=== PATIENT | female | born 1935 | race Caucasian/White ===

== ENCOUNTER 2016-10-17 22:18 | Emergency (ER) | payer MEDICARE, BC ==
--- NOTE | 2016-10-17 22:50 | Emergency Department Record ---
History of Present Illness - General Chief Complaint: Cough Stated Complaint: COUGH Time Seen by Provider: 10/17/16 22:46 Source: Patient Mode of Arrival: Ambulatory Limitations: No limitations - History of Present Illness Initial Comments: 81 yo female presents to ED for evaluation of a cough for several days. Patient denies fevers, chills, nausea, or vomiting. Patient reports that she has been eating well as well. Patient denies previous heart or lung problems, but does report that several people have had bronchitis around her. MD Complaint: Cough Onset/Timin -: Week(s) Severity: Mild Consistency: Constant Improves With: Nothing Worsens With: Nothing Context: Sick contacts Associated Symptoms: Denies other symptoms Treatments Prior to Arrival: None - Related Data Home Medications Medication Instructions Recorded Confirmed Last Taken Calcium Carbonate/Vitamin D3 1 each PO BID 07/01/14 10/17/16 10/17/16 [Calcium 600 + Vit D Tablet] Donepezil HCl [Aricept] 5 mg PO QHS 07/01/14 10/17/16 10/17/16 Losartan Potassium [Cozaar] 50 mg PO DAILY 07/01/14 10/17/16 10/17/16 Metoprolol Tartrate [Lopressor] 50 mg PO DAILY 07/01/14 10/17/16 10/17/16 Simvastatin [Zocor] 20 mg PO QHS 07/01/14 10/17/16 10/17/16 Meloxicam [Meloxicam] 7.5 mg PO DAILY 05/20/16 10/17/16 10/17/16 Previous Rx's Medication Instructions Recorded Omeprazole [Prilosec] 20 mg PO BID #60 capsule. 02/12/15 Azithromycin [Zithromax] 250 mg PO DAILY #4 tab 10/17/16 Prednisone [Prednisone 20Mg] 20 mg PO BID #10 tab 10/17/16 Allergies Allergy/AdvReac Type Severity Reaction Status Date / Time No Known Drug Allergies Allergy Verified 02/11/15 17:12 Travel Screening - Travel/Exposure Within Last 30 Days Have you traveled within the last 30 days?: No - Travel/Exposure Within Last Year Have you traveled outside the [place] in the last year?: No - Additonal Travel Details Have you been exposed to anyone with a communicable illness?: No - Travel Symptoms Symptom Screening: None Review of Systems Constitutional: Denies: Chills, Fever, Malaise, Night sweats Eyes: Denies: Eye discharge, Eye pain ENT: Reports: Congestion. Denies: Ear pain, Epistaxis Respiratory: Reports: Cough. Denies: Dyspnea Cardiovascular: Denies: Chest pain, Dyspnea on exertion Endocrine: Denies: Fatigue, Heat or cold intolerance Gastrointestinal: Denies: Abdominal pain, Nausea, Vomiting Genitourinary: Denies: Dysuria, Frequency, Hematuria, Incontinence Musculoskeletal: Denies: Arthralgia, Back pain, Gout, Joint swelling Skin: Denies: Bruising, Change in color Neurological: Denies: Abnormal gait, Confusion, Headache, Seizure Psychiatric: Denies: Anxiety Hematological/Lymphatic: Denies: Anemia, Blood Clots Past Medical History - SOCIAL HISTORY Smoking Status: Never smoker Alcohol Use: None Drug Use: None - RESPIRATORY Hx Respiratory Disorders: No - CARDIOVASCULAR Hx Cardio Disorders: Yes Hx Hypertension: Yes Comment:: High Cholestrol - NEURO Hx Neuro Disorders: Yes Comment:: per family has the very early signs of alzheimers - GI Hx GI Disorders: No - Hx Genitourinary Disorders: No - ENDOCRINE Hx Endocrine Disorders: No Hx Diabetes: No Hx Thyroid Disease: No - MUSCULOSKELETAL Hx Musculoskeletal Disorders: Yes Hx Osteoporosis: Yes - PSYCH Hx Psych Problems: No - HEMATOLOGY/ONCOLOGY Hx Hematology/Oncology Disorders: No Family Medical History Any Significant Family History?: No Hx Heart Disease: Mother Hx HTN: Brother/Sister Physical Exam - General General Appearance: Alert, Oriented x3, Cooperative, No acute distress Limitations: No limitations - Head Head exam: Atraumatic, Normocephalic, Normal inspection Head exam detail: negative: Abrasion, Contusion, Motley's sign, General tenderness, Hematoma, Laceration - Eye Eye exam: Normal appearance. negative: Conjunctival injection, Periorbital swelling, Periorbital tenderness, Scleral icterus - ENT Ear exam: negative: Auricular hematoma, Auricular trauma Nasal Exam: negative: Active bleeding, Discharge, Dried blood, Foreign body, Sinus tenderness Mouth exam: negative: Drooling, Laceration, Muffled voice, Tongue elevation - Neck Neck exam: Normal inspection. negative: Meningismus, Tenderness - Respiratory Respiratory exam: Normal lung sounds bilaterally. negative: Respiratory distress, Rhonchi, Stridor, Wheezes - Cardiovascular Cardiovascular Exam: Regular rate, Normal rhythm, Normal heart sounds - GI/Abdominal GI/Abdominal exam: Soft. negative: Rebound, Rigid, Tenderness - Rectal Rectal exam: Deferred - exam: Deferred - Extremities Extremities exam: negative: Calf tenderness, Pedal edema, Tenderness - Back Back exam: Reports: Other (kyphosis of the thoracic spine on examination). Denies: CVA tenderness (R), CVA tenderness (L) - Neurological Neurological exam: Alert, Oriented X3 - Psychiatric Psychiatric exam: Normal affect, Normal mood - Skin Skin exam: Normal color. negative: Abrasion Type of lesion: negative: abrasion Course Vital Signs 10/17/16 22:22 Temperature 98.7 F Pulse Rate 98 H Respiratory 20 Rate Blood Pressure 132/79 Pulse Ox 97 - Reevaluation(s) Reevaluation #1: 10/17/16 23:02 CXR: Nothing acute. Patient and family were updated on all results, patient appears stable for discharge home on Zithromax and Prednisone for likely bronchitis symptoms. Disposition Disposition: Discharge Clinical Impression: Acute bronchitis Qualifiers: Bronchitis organism: unspecified organism Qualified Code(s): J20.9 - Acute bronchitis, unspecified Disposition: Home, Self-Care Condition: (2) Stable Instructions: Acute Bronchitis (ED) Additional Instructions: Return to ED if your symptoms worsen or if you have any concerns. Zithromax and prednisone as directed. Follow-up with your family doctor in 3-5 days as directed. Prescriptions: Prednisone [Prednisone 20Mg] 20 mg PO BID #10 tab Azithromycin [Zithromax] 250 mg PO DAILY #4 tab Forms: Patient Portal Access Time of Disposition: 22:50
[2016-10-17] MEDS ORDERED: AZITHROMYCIN 500 MG TABLET PO ONE (23:04)
[2016-10-17] MEDS ORDERED: PREDNISONE 20 MG TAB PO ONE (23:04)
== END 2016-10-17 23:17 | disposition home or self-care (01) ==
LOC: ER 22:18
DX: J20.9 Acute bronchitis, unspecified (principal)
CPT/HCPCS: 99283 ×2; 71020; J7512

== ENCOUNTER 2017-02-15 01:27 | Emergency (ER) | payer MEDICARE, BC ==
[2017-02-15 02:26] LABS: BASO % 0.1 % (0-6); GRAN % 79.9 % (47-80); HEMATOCRIT 38.4 % (35.0-47.0); HEMOGLOBIN 12.6 gm/dl (11.6-16.0); MEAN CELL VOLUME 93.9 fl (81-97); MEAN CORPUSCULAR HEMOGLOBIN 30.8 pg (27-33); MEAN CORPUSCULAR HGB CONC 32.8 g/dl (32-36); MEAN PLATELET VOLUME 10.6 fl (7.4-10.4); PLATELET COUNT 215 K/uL (130-400); RED BLOOD COUNT 4.09 M/uL (3.80-5.40); WHITE BLOOD COUNT W/O DIFF 12.1 K/uL (4.2-12.2)
[2017-02-15 02:34] LABS: ALB/GLOB RATIO 1.2 (1.1-1.8); ALBUMIN 3.8 gm/dL (3.5-5.0); ANION GAP 10.2 (7-16); BILIRUBIN,TOTAL 0.51 mg/dL (0.2-1.3); CARBON DIOXIDE 22.8 mmol/L (22-30); TOTAL PROTEIN 6.9 gm/dL (6.3-8.2)
--- NOTE | 2017-02-15 03:00 | Emergency Department Record ---
History of Present Illness - General Chief complaint: Weakness Stated complaint: WEAKNESS Time Seen by Provider: 02/15/17 02:02 Source: Patient, EMS Mode of Arrival: EMS Limitations: No limitations - History of Present Illness Initial comments: family thought pt was dehydrated because she had 4 bouts of diarrhea. they also thought she was weak. pt has no complaints. MD Complaint: Generalized weakness Onset/Timin -: Hour(s) Location: Generalized Severity: Mild Quality: Other Consistency: Constant Improves with: None Worsens with: None Context: Other Associated Symptoms: Other - [place] Coma Scale Eye Response: (4) Open spontaneously Motor Response: (6) Obeys commands Verbal Response: (5) Oriented [place] Total: 15 - Related Data Home Medications Medication Instructions Recorded Confirmed Last Taken Calcium Carbonate/Vitamin D3 1 each PO BID 07/01/14 02/15/17 10/17/16 [Calcium 600 + Vit D Tablet] Donepezil HCl [Aricept] 5 mg PO QHS 07/01/14 02/15/17 10/17/16 Losartan Potassium [Cozaar] 50 mg PO DAILY 07/01/14 02/15/17 10/17/16 Metoprolol Tartrate [Lopressor] 50 mg PO DAILY 07/01/14 02/15/17 10/17/16 Simvastatin [Zocor] 20 mg PO QHS 07/01/14 02/15/17 10/17/16 Meloxicam [Meloxicam] 7.5 mg PO DAILY 05/20/16 02/15/17 10/17/16 Cholecalciferol (Vitamin D3) 1,000 unit PO DAILY 02/15/17 02/15/17 Unknown [Vitamin D3] Omeprazole [Prilosec] 20 mg PO QAM 02/15/17 02/15/17 Unknown Allergies Allergy/AdvReac Type Severity Reaction Status Date / Time No Known Drug Allergies Allergy Verified 02/11/15 17:12 Travel Screening - Travel/Exposure Within Last 30 Days Have you traveled within the last 30 days?: No - Travel/Exposure Within Last Year Have you traveled outside the [place] in the last year?: No - Additonal Travel Details Have you been exposed to anyone with a communicable illness?: No - Travel Symptoms Symptom Screening: None Review of Systems Reviewed: No additional complaints except as noted below Constitutional: Reports: As per HPI. Denies: Chills, Fever, Malaise, Night sweats, Weakness, Weight change Eyes: Reports: As per HPI. Denies: Eye discharge, Eye pain, Photophobia, Vision change ENT: Reports: As per HPI. Denies: Congestion, Dental pain, Ear pain, Epistaxis , Hearing loss, Throat pain Respiratory: Reports: As per HPI. Denies: Cough, Dyspnea, Hemoptysis, Stridor, Wheezes Cardiovascular: Reports: As per HPI. Denies: Arrhythmia, Chest pain, Dyspnea on exertion, Edema, Murmurs, Orthopnea, Palpitations, Paroxysmal nocturnal dyspnea, Rheumatic Fever, Syncope Endocrine: Reports: As per HPI. Denies: Fatigue, Heat or cold intolerance, Polydipsia, Polyuria Gastrointestinal: Reports: As per HPI. Denies: Abdominal pain, Constipation, Diarrhea, Hematemesis, Hematochezia, Melena, Nausea, Vomiting Genitourinary: Reports: As per HPI. Denies: Abnormal menses, Discharge, Dyspareunia, Dysuria, Frequency, Hematuria, Incontinence, Retention, Urgency Musculoskeletal: Reports: As per HPI. Denies: Arthralgia, Back pain, Gout, Joint swelling, Myalgia, Neck pain Skin: Reports: As per HPI. Denies: Bruising, Change in color, Change in hair/ nails, Lesions, Pruritus, Rash Neurological: Reports: As per HPI. Denies: Abnormal gait, Confusion, Headache, Numbness, Paresthesias, Seizure, Tingling, Tremors, Vertigo, Weakness Psychiatric: Reports: As per HPI. Denies: Anxiety, Auditory hallucinations, Depression, Homicidal thoughts, Suicidal thoughts, Visual hallucinations Hematological/Lymphatic: Reports: As per HPI. Denies: Anemia, Blood Clots, Easy bleeding, Easy bruising, Swollen glands Past Medical History - SOCIAL HISTORY Smoking Status: Never smoker Alcohol Use: None Drug Use: None - RESPIRATORY Hx Respiratory Disorders: No - CARDIOVASCULAR Hx Cardio Disorders: Yes Hx Hypertension: Yes Comment:: High Cholestrol - NEURO Hx Neuro Disorders: Yes Comment:: per family has the very early signs of alzheimers - GI Hx GI Disorders: No - Hx Genitourinary Disorders: No - ENDOCRINE Hx Endocrine Disorders: No Hx Diabetes: No Hx Thyroid Disease: No - MUSCULOSKELETAL Hx Musculoskeletal Disorders: Yes Hx Osteoporosis: Yes - PSYCH Hx Psych Problems: No - HEMATOLOGY/ONCOLOGY Hx Hematology/Oncology Disorders: No Family Medical History Any Significant Family History?: No Hx Heart Disease: Mother Hx HTN: Brother/Sister Physical Exam - General General Appearance: Alert, Oriented x3, Cooperative, Mild distress - Head Head exam: Normal inspection - Eye Eye exam: Normal appearance, PERRL, EOMI Pupils: Normal accommodation - ENT ENT exam: Normal exam, Mucous membranes moist, Normal external ear exam, Normal orophraynx Ear exam: Normal external inspection. negative: External canal tenderness Nasal Exam: Normal inspection. negative: Discharge, Sinus tenderness Mouth exam: Normal external inspection, Tongue normal Teeth exam: Normal inspection. negative: Dental caries Throat exam: Normal inspection. negative: Tonsillar erythema, Tonsillar exudate - Neck Neck exam: Normal inspection, Full ROM. negative: Tenderness - Respiratory Respiratory exam: Normal lung sounds bilaterally. negative: Respiratory distress - Cardiovascular Cardiovascular Exam: Regular rate, Normal rhythm, Normal heart sounds - GI/Abdominal GI/Abdominal exam: Soft, Normal bowel sounds. negative: Tenderness - Rectal Rectal exam: Deferred - exam: Deferred - Extremities Extremities exam: Normal inspection, Full ROM, Normal capillary refill. negative: Tenderness - Back Back exam: Reports: Normal inspection, Full ROM. Denies: Muscle spasm, Rash noted, Tenderness - Neurological Neurological exam: Alert, CN II-XII intact, Normal gait, Oriented X3 - Psychiatric Psychiatric exam: Normal affect, Normal mood - Skin Skin exam: Dry, Intact, Normal color, Warm Course Vital Signs 02/15/17 01:35 Temperature 97.6 F Pulse Rate 76 Respiratory 20 Rate Blood Pressure 135/75 Pulse Ox 99 Medical Decision Making - Management Options MDM Management: No Additional Work-up Planned - Data Complexity MDM Data: Labs Ordered and/or Reviewed - Lab Data Result diagrams: 02/15/17 01:55 02/15/17 01:55 Lab Results 02/15/17 02/15/17 Range/Units 01:55 01:55 WBC 12.1 (4.2-12.2) K/uL RBC 4.09 (3.80-5.40) M/uL Hgb 12.6 (11.6-16.0) gm/dl Hct 38.4 (35.0-47.0) % MCV 93.9 (81-97) fl MCH 30.8 (27-33) pg MCHC 32.8 (32-36) g/dl RDW 13.0 (11.5-14.5) % Plt Count 215 (130-400) K/uL MPV 10.6 H (7.4-10.4) fl Gran % 79.9 (47-80) % Lymphocytes % 12.0 L (16-45) % Monocytes % 7.0 (0-9) % Eosinophils % 1.0 (0-6) % Basophils % 0.1 (0-6) % Sodium 141 (136-145) mmol/L Potassium 3.4 L (3.5-5.1) mmol/L Chloride 108 H (98-107) mmol/L Carbon Dioxide 22.8 (22-30) mmol/L Anion Gap 10.2 (7-16) BUN 11 (7-17) mg/dL Creatinine 1.0 (0.52-1.04) mg/dL Estimated GFR 56 ml/min Random Glucose 151 H (70-110) mg/dL Calcium 8.9 (8.5-10.1) mg/dL Total Bilirubin 0.51 (0.2-1.3) mg/dL AST 23 (14-36) U/L ALT 19 (9-52) U/L Alkaline Phosphatase 70 (38-126) U/L Total Protein 6.9 (6.3-8.2) gm/dL Albumin 3.8 (3.5-5.0) gm/dL Globulin 3.1 (1.4-4.8) gm/dL Albumin/Globulin Ratio 1.2 (1.1-1.8) Lipase 109 (23-300) U/L Disposition Disposition: Discharge Clinical Impression: Dehydration Diarrhea Qualifiers: Diarrhea type: unspecified type Qualified Code(s): R19.7 - Diarrhea, unspecified Disposition: Home, Self-Care Condition: (1) Good Instructions: Acute Diarrhea (ED), Dehydration (ED) Additional Instructions: follow up with family doctor. return sooner if worse. push fluids Forms: Patient Portal Access
[2017-02-15 04:34] LABS: URINE APPEARANCE CLEAR; URINE BILIRUBIN NEGATIVE (NEGATIVE); URINE BLOOD NEGATIVE (NEGATIVE); URINE COLOR YELLOW; URINE GLUCOSE (UA) NEGATIVE (NEGATIVE); URINE KETONE NEGATIVE (NEGATIVE); URINE LEUKOCYTE ESTERASE NEGATIVE (NEGATIVE); URINE NITRITE NEGATIVE (NEGATIVE); URINE PROTEIN TRACE (NEGATIVE); URINE UROBILINOGEN 0.2 E.U./dL (0.20 - 1.00)
== END 2017-02-15 04:51 | disposition home or self-care (01) ==
LOC: ER 01:27
DX: E86.0 Dehydration (principal); R19.7 Diarrhea, unspecified; R53.1 Weakness; I10 Essential (primary) hypertension
CPT/HCPCS: 80053; 81003; 83690; 85025; 99283

== ENCOUNTER 2018-12-12 11:23 | Emergency (ER) | payer MEDICARE, BC ==
--- NOTE | 2018-12-12 12:16 | Emergency Department Record ---
History of Present Illness - General Chief complaint: Extremity Problem Stated complaint: PAINFUL LEGS Time Seen by Provider: 12/12/18 11:40 Source: Patient, Family Mode of Arrival: Wheelchair Limitations: No limitations - History of Present Illness Initial comments: The patient is here due to lower leg pain for 3-4 days. She has a long hx of dementia and arthritis and recently had her Mobic stopped by her PCP due to renal insuffiency. Now since it was stopped she has worsening pain to her legs and mainly knees. Today he is unable to get up and walk. There is no hx of trauma, injury or fall. MD Complaint: Extremity pain Onset/Timin -: Days(s) Location: Bilateral, Knee, Lower Leg History of Same: Yes (Right worse than left) Severity scale (1-10): 7 Consistency: Constant Improves with: Nothing Worsens with: Nothing Associated Symptoms: Arthralgias - Related Data Previous Rx's Medication Instructions Recorded Prednisone [Prednisone 20Mg] 40 mg PO DAILY #10 tab 12/12/18 Allergies Allergy/AdvReac Type Severity Reaction Status Date / Time No Known Drug Allergies Allergy Verified 12/12/18 11:28 Travel Screening - Travel/Exposure Within Last 30 Days Have you traveled within the last 30 days?: No - Travel/Exposure Within Last Year Have you traveled outside the [place] in the last year?: No - Additonal Travel Details Have you been exposed to anyone with a communicable illness?: No - Travel Symptoms Symptom Screening: None Review of Systems Constitutional: Denies: Chills, Fever Eyes: Denies: Eye discharge ENT: Denies: Congestion Respiratory: Denies: Cough, Dyspnea Past Medical History - SOCIAL HISTORY Smoking Status: Never smoker Alcohol Use: None Drug Use: None - RESPIRATORY Hx Respiratory Disorders: No - CARDIOVASCULAR Hx Cardio Disorders: Yes Hx Hypertension: Yes Comment:: High Cholestrol - NEURO Hx Neuro Disorders: Yes Comment:: per family has the very early signs of alzheimers - GI Hx GI Disorders: No - Hx Genitourinary Disorders: No - ENDOCRINE Hx Endocrine Disorders: No Hx Diabetes: No Hx Thyroid Disease: No - MUSCULOSKELETAL Hx Musculoskeletal Disorders: Yes Hx Osteoporosis: Yes - PSYCH Hx Psych Problems: No - HEMATOLOGY/ONCOLOGY Hx Hematology/Oncology Disorders: No Family Medical History Any Significant Family History?: Yes Hx Heart Disease: Mother Hx HTN: Brother/Sister Physical Exam - General General Appearance: Alert, Cooperative, No acute distress - Head Head exam: Atraumatic, Normocephalic - Eye Eye exam: Normal appearance, PERRL - Neck Neck exam: Normal inspection, Full ROM. negative: Tenderness - Respiratory Respiratory exam: Normal lung sounds bilaterally. negative: Respiratory distress - Cardiovascular Cardiovascular Exam: Regular rate, Normal rhythm, Normal heart sounds - GI/Abdominal GI/Abdominal exam: Soft, Normal bowel sounds. negative: Tenderness - Extremities Extremities exam: Joint swelling, Tenderness, Other (The lower legs are NVI with normal pulses.). negative: Normal inspection (The R knee does appear swollen and is mildly tender with decreased ROM. ), Full ROM - Back Back exam: Reports: Normal inspection - Neurological Neurological exam: Alert. negative: Motor sensory deficit Course Vital Signs 12/12/18 11:34 Temperature 97.8 F Pulse Rate 86 Respiratory 20 Rate Blood Pressure 140/98 Pulse Ox 97 - Reevaluation(s) Reevaluation #1: The patient is doing a lot better at this time. The R knee pain is much improved and I did discuss the case with Dr. Joseph who agrees with the plan. 12/12/18 13:49 Medical Decision Making - Data Complexity MDM Data: Labs Ordered and/or Reviewed, X-Ray Ordered and/or Reviewed - Lab Data Result diagrams: 12/12/18 12:35 12/12/18 12:35 - Radiology Data Radiology results: Report reviewed (R Knee: Significant DJD but no change from old.) Disposition Disposition: Discharge Clinical Impression: Arthritis of knee Disposition: Home, Self-Care Condition: (2) Stable Instructions: Arthritis (ED) Additional Instructions: Please continue your regular medicines and continue the Prednisone tomorrow. Please see your Orthopedic doctor next week and see Dr. Joseph next week for recheck. Prescriptions: Prednisone [Prednisone 20Mg] 40 mg PO DAILY #10 tab Forms: Patient Portal Access Time of Disposition: 13:48 Quality - Quality Measures Quality Measures: N/A - Blood Pressure Screening View Details: Yes Does Patient Have Any of the Following: Active Dx of HTN Blood Pressure Classification: Hypertensive Reading Systolic Measurement: 140 Diastolic Measurement: 98 Screening for High Blood Pressure: Patient Exclusion, Hx of HTN [[id number]]
[2018-12-12 12:48] LABS: GRAN % 79.7 % (47-80); HEMOGLOBIN 13.4 gm/dl (11.6-16.0); LYMPH % 9.9 % (16-45); MEAN CORPUSCULAR HEMOGLOBIN 31.2 pg (27-33); MEAN CORPUSCULAR HGB CONC 33.5 g/dl (32-36); MEAN PLATELET VOLUME 9.9 fl (7.4-10.4); MONO % 10.4 % (0-9); PLATELET COUNT 218 K/uL (130-400); WHITE BLOOD COUNT W/O DIFF 12.7 K/uL (4.2-12.2)
[2018-12-12] MEDS ORDERED: METHYLPREDNISOLONE PF 125MG/VIAL IM ONE (13:22)
--- NOTE | 2018-12-14 10:30 | RADIOLOGY REPORT ---
EXAM: RIGHT KNEE, THREE VIEWS HISTORY: UNEXPLAINED SWELLING. NO KNOWN INJURY. PAIN. TECHNIQUE: AP, oblique and lateral views of the right knee were obtained. Comparison: Four views of the right knee dated 08/09/18. Encounter: Initial. FINDINGS: There is generalized osteopenia. No acute fracture nor dislocation. No new lytic or blastic bone lesion. Tricompartmental osteoarthrosis is present, advanced in the medial compartment and moderate in both the patellofemoral and lateral compartments. There is at least a small suprapatellar joint effusion again suspected. No new focal soft tissue abnormality. IMPRESSION: 1. NO ACUTE FRACTURE NOR DISLOCATION. 2. TRICOMPARTMENTAL OSTEOARTHROSIS REDEMONSTRATED MOST PRONOUNCED IN THE MEDIAL COMPARTMENT WHERE CHANGES ARE ADVANCED. 3. POSSIBLE SMALL SUPRAPATELLAR JOINT EFFUSION. JOB NUMBER: [id number] MTDD
== END 2018-12-12 14:05 | disposition home or self-care (01) ==
LOC: ER 11:23
DX: M17.11 Unilateral primary osteoarthritis, right knee (principal); I10 Essential (primary) hypertension; G30.9 Alzheimer's disease, unspecified; F02.80 Dementia in other diseases classified elsewhere, unspecified severity, without behavioral disturbance, psychotic disturbance, mood disturbance, and anxiety
CPT/HCPCS: 80048; 85025; 96372; 99283; 99284; J2930